=== PATIENT | male | born 1995 | race Caucasian/White ===

== ENCOUNTER 2022-11-15 17:05 | Emergency (ER) | payer OTHER, SELFPAY ==
[2022-11-15 17:11] VITALS: BP 141/94; PULSE 75; RESP 14; TEMP 36.4; O2SAT 99; BMI 28.2
--- NOTE | 2022-11-15 17:30 | ED_ITS ---
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 He does not shortness last tetanus, he is otherwise quite healthy Related Data Home Medications Medication Instructions Recorded Confirmed No Known Home Medications 11/15/22 11/15/22 Allergies Allergy/AdvReac Type Severity Reaction Status Date / Time No Known Drug Allergies Allergy Verified 11/15/22 17:10 Review of Systems Status of ROS: Reports: 6 or more systems reviewed and unremarkable except as noted in History and below PFSH PFS Social History Smoking Status: Never smoker Do you use any of these nicotine containing products: None Second hand tobacco smoke exposure: No How often do you have a drink containing alcohol: 4 or more times a week How many standard drinks containing alcohol do you have on a typical day: 3 or 4 AUDIT-C Alcohol total score: 5 Non-prescribed substance use: denies use Exam Narrative: Exam Narrative: Objective: Vital signs are unremarkable the patient has a 2 cm cut through the distal hand just above the extensor tendon of the long finger there is with careful cleansing and inspection no neurovascular involvement no tendon involvement she is able to flex extend at his MCP joint well. No other injuries reported Const: Vital Signs, click to edit/add: Vital Signs - 24 hr 11/15/22 17:11 Temperature 97.6 F Pulse Rate [Right Pulse Oximeter] 75 Respiratory Rate 14 Blood Pressure [Ri ght Upper Arm] 141/94 H Pulse Oximetry 99 Oxygen Delivery Me thod Room Air Course Vital Signs Vital signs: Initial Vital Signs Temperature 97.6 F 11/15/22 17:11 Temperature Source Temporal Artery Scan 11/15/22 17:11 Pulse Rate 75 11/15/22 17:11 Respiratory Rate 14 11/15/22 17:11 Blood Pressure 141/94 H 11/15/22 17:11 Blood Pressure Mean 109 11/15/22 17:11 Blood Pressure Position Sitting 11/15/22 17:11 Pulse Oximetry 99 11/15/22 17:11 Oxygen Delivery Method 11/15/22 17:11 Vital Signs Temperature 97.6 F 11/15/22 17:11 Pulse Rate 75 11/15/22 17:11 Respiratory Rate 14 11/15/22 17:11 Blood Pressure 141/94 H 11/15/22 17:11 Pulse Oximetry 99 11/15/22 17:11 Oxygen Delivery Method 11/15/22 17:11 Temperature 97.6 F 11/15/22 17:11 Pulse Rate 75 11/15/22 17:11 Respiratory Rate 14 11/15/22 17:11 Blood Pressure 141/94 H 11/15/22 17:11 Pulse Oximetry 99 11/15/22 17:11 Oxygen Delivery Method 11/15/22 17:11 Medical Decision Making MDM Narrative Medical decision making narrative: Procedure: After sterile prep 1% xylocaine without epinephrine used for anesthesia, inspection of the wound showed no tendon involvement he did have a rent in his capsule that was small of a few mm but no tendon involvement and as mention no arterial bleeding. The patient had 3-0 simple opted sutures placed x3. Good skin edge approximation good hemostasis. During the procedure the patient had a vasovagal spell got pale felt sweaty, improved within a few seconds this only lasted a few seconds. He is awake and alert working given juice let him sit up slowly Patient is due for a tetanus will given a Tdap when he feels a little better Discharge Plan Discharge Clinical Impression: Laceration Patient Disposition: Home, Self-Care Condition: Improved Additional Instructions: Sutures suture removal in 7 days, observation, keep covered for 48 hours, may soak and bathe normally in 48 hours. Light activity the hand for 1 week. Suture removal in clinic in 1 week. Any redness or infection return to the hospital Activity Level: Light activity Activity Detail: Light use of the right hand for 1 week Discharge Diet: Regular Prescriptions: No Action No Known Home Medications Stand Alone Forms: [employer] Info Instructions
[2022-11-15] MEDS: TETANUS/DIPHTH/PERTUSSIS 0.5 ML SYRINGE IM (17:47)
== END 2022-11-15 18:04 | disposition home or self-care (01) ==
LOC: ED 17:48
PROVIDERS: Emergency Provider Family Medicine
DX: S61.411A Laceration without foreign body of right hand, initial encounter (principal); W45.8XXA Other foreign body or object entering through skin, initial encounter; Y99.0 Civilian activity done for income or pay
CPT/HCPCS: 12001; 90471; 90715; 99283

== ENCOUNTER 2023-01-09 14:26 | Emergency (ER) | payer OTHER, SELFPAY ==
[2023-01-09 14:39] VITALS: BP 123/72; PULSE 108; RESP 18; TEMP 36.7; O2SAT 96; BMI 27.4
--- NOTE | 2023-01-09 15:03 | ED.UPPEXIN ---
HPI - Extremity Injury (Upper) General Date Seen: 01/09/23 Chief Complaint: Extremity Pain/Injury, Upper Stated Complaint: Swelling, possible infection R hand Time Seen by Provider: 01/09/23 14:46 Source: patient Mode of arrival: ambulatory Limitations: no limitations History of Present Illness HPI narrative: Patient is a very nice 27-year-old gentleman who presents here for evaluation of the right hand, approximately in early part of November he had a laceration pair overlying his right 3rd metacarpal extensor tendon, he says it still is slightly swollen and red since then, is worried about infection but has full range of motion denies any numbness tingling or any pain with his at all. He came in to be seen. MD complaint: injury to: right Related Data Home Medications Medication Instructions Recorded Confirmed No Known Home Medications 11/15/22 11/15/22 Allergies Allergy/AdvReac Type Severity Reaction Status Date / Time No Known Drug Allergies Allergy Verified 11/15/22 17:10 Review of Systems Status of ROS: Reports: 6 or more systems reviewed and unremarkable except as noted in History and below PFSH PFSH Social History Smoking Status: Never smoker Do you use any of these nicotine containing products: None Second hand tobacco smoke exposure: No How often do you have a drink containing alcohol: 4 or more times a week How many standard drinks containing alcohol do you have on a typical day: 3 or 4 AUDIT-C Alcohol total score: 5 Non-prescribed substance use: denies use Exam Narrative: Exam Narrative: Patient is seen in room 4 he is in no apparent distress his right hand is examined he has approximately 2 cm horizontal angular scar overlying his extensor tendon on his left 3rd MCP joint, he has full range of motion of his MCP joint in flexion extension, cap refills normal sensations normal, and a little bit of a hypertrophic scar forming along where repair was, he has got a little bit of a of hyperpigmentation, over proximal to this where the injury occurred. But really otherwise normal. There is no ballottement of any fluid, or any evidence of infection with tenderness pain or redness or warmth. Const: Vital Signs, click to edit/add: Vital Signs - 24 hr 01/09/23 14:39 Temperature 98.0 F Pulse Rate [Right Pulse Oximeter] 108 H Respiratory Rate 18 Blood Pressure [Ri ght Upper Arm] 123/72 Pulse Oximetry 96 Oxygen Delivery Me thod Room Air Course Course Hospital Course: I discussed with him that I think it is going to take some time to get better, it likely will take up to a year, there may be some hyperpigmentation, but there is no evidence of infection. He was reassured by this. Vital Signs Vital signs: Initial Vital Signs Temperature 98.0 F 01/09/23 14:39 Temperature Source Temporal Artery Scan 01/09/23 14:39 Pulse Rate 108 H 01/09/23 14:39 Respiratory Rate 18 01/09/23 14:39 Blood Pressure 123/72 01/09/23 14:39 Blood Pressure Mean 89 01/09/23 14:39 Blood Pressure Position Sitting 01/09/23 14:39 Pulse Oximetry 96 01/09/23 14:39 Oxygen Delivery Method Room Air 01/09/23 14:39 Vital Signs Temperature 98.0 F 01/09/23 14:39 Pulse Rate 108 H 01/09/23 14:39 Respiratory Rate 18 01/09/23 14:39 Blood Pressure 123/72 01/09/23 14:39 Pulse Oximetry 96 01/09/23 14:39 Oxygen Delivery Method Room Air 01/09/23 14:39 Temperature 98.0 F 01/09/23 14:39 Pulse Rate 108 H 01/09/23 14:39 Respiratory Rate 18 01/09/23 14:39 Blood Pressure 123/72 01/09/23 14:39 Pulse Oximetry 96 01/09/23 14:39 Oxygen Delivery Method Room Air 01/09/23 14:39 MDM - Extremity Injury (Upper) MDM Narrative Medical decision making narrative: During this evaluation I considered tendon rupture, tendon injury, tenosynovitis, bony abnormality such as fracture, hematoma, infection, neuroma, or other issue. Discharge Plan Discharge Clinical Impression: Injury of finger Patient Disposition: Home, Self-Care Condition: Stable Additional Instructions: Skin changes will take up to a year to go way after the laceration repair, no evidence of infection, would do nothing for this at this time, except reassurance. Follow-up with primary care Activity Level: No Restrictions Prescriptions: No Action No Known Home Medications Follow Up/Referrals: Provider,Not a Local [Primary Care Provider] - Stand Alone [facility]: [facility] Info Instructions
== END 2023-01-09 15:24 | disposition home or self-care (01) ==
PROVIDERS: Emergency Provider Family Medicine
DX: S69.91XA Unspecified injury of right wrist, hand and finger(s), initial encounter (principal)
CPT/HCPCS: 99282; 99283